=== PATIENT | female | born 1990 | race Hispanic/Latino ===

== ENCOUNTER 2019-06-30 09:44 | Outpatient (CLI) | payer OTHER ==
--- NOTE | 2019-06-30 12:35 | ULT ---
OB ULTRASOUND: 06/30/19 HISTORY: anatomy. FINDINGS: A single live intrauterine gestation is seen with measurements corresponding to an estimated gestati onal age of 21 weeks, 0 days and HEBER at 11/10/19. The estimated weight measures 381 grams or 13 oz (88% by Hadlock criteria). measurements are as follows: BPD 5.06 cm 21 weeks, 3 days HC 17.72 cm 20 weeks, 2 days AC 15.12 cm 21 weeks, 2 days FL 3.35 cm 20 weeks, 4 days heart rate measures 140 beats per minute. Placenta is posteriorly located and low lying without placenta previa. Cervical length is 3.7 cm. The posterior placental tip is about 2 cm away from the cervix. A three vessel cord, cord insertion, kidneys, bladder, stomach, four chambered heart, lateral v entricles, cerebellum, spine, lips/nose, upper and lower extremities are visualized. No definite feta l anomalies are seen. The JOSEE measures 15 cm. IMPRESSION: Single live IUP of 21 weeks, 0 days estimated gestational age and HEBER of 11/10/19. POS: [facility]
== END 2019-06-30 09:45 | disposition home or self-care (01) ==
LOC: BICULT 09:44
PROVIDERS: ATTEND Family Medicine
DX: Z34.82 Encounter for supervision of other normal pregnancy, second trimester (principal); Z3A.21 21 weeks gestation of pregnancy
CPT/HCPCS: 76805

== ENCOUNTER 2021-12-10 09:50 | Emergency (ER) | payer OTHER, SELFPAY ==
[2021-12-10 10:18] LABS: #Basophils 0.1 thou/uL (0.0-0.2); #Eosinphils 0.2 thou/uL (0.0-0.7); #Lymphocytes 2.1 thou/uL (1.20-3.40); #Monocytes 0.4 thou/uL (0.11-0.59); #Neutrophils 4.4 thou/uL (1.40-6.50); %Basophils 0.9 % (0.0-1.0); %Eosinophils 2.9 % (0.0-10.0); %Lymphocytes 29.8 % (21.0-51.0); %Monocytes 5.8 % (0.0-10.0); %Neutrophils 60.6 % (42.0-75.0); Hemoglobin 11.8 g/dL (12.0-16.0); Mean Corpuscular HGB CONC 33.8 g/dL (32.0-36.0); Mean Corpuscular Hemoglobin 28.2 pg (27.0-31.0); Mean Corpuscular Volume 83.4 fL (78.0-98.0); Mean Platelet Volume 7.2 fL (7.4-10.4); Platelet Count 253 thou/uL (130-400); Red Blood Cell (RBC) Count 4.19 mill/uL (4.20-5.40); White Blood Cell (WBC) Count 7.2 thou/uL (4.8-10.8)
== END 2021-12-10 14:45 | disposition short-term general hospital (02) ==
LOC: ERS 09:50
DX: O02.1 Missed abortion (principal); Z3A.13 13 weeks gestation of pregnancy
CPT/HCPCS: 36415; 84702; 85025; 86900; 86901